=== PATIENT | female | born 1955 | race Caucasian/White ===

== ENCOUNTER 2016-06-06 05:41 | Inpatient (IN) | payer OTHER ==
[~2016-06-06] VITALS: Ht 167.6 cm; Wt 87.6 kg
--- NOTE | ~2016-06-06 | CON ---
[facility] AGE[facility] 60 Y [address] ROOM: [place] [address] LOCATION: [facility] ADMIT DATE: 06/06/2016 Consultation DISCHARGE DATE: FAMILY PHYSICIAN: PHYSICIAN, UNKNOWN ATTENDING PHYSICIAN: JOSELINE MOSELEY DATE OF CONSULTATION: 06/06/2016 REFERRING: Hospitalist Service. REASON FOR REFERRAL: Respiratory failure. HISTORY OF PRESENT ILLNESS: The patient is a 60-year-old woman who comes in apparently with an overdose Of multiple substances. Initially, presented to [facility]. Subsequently, transferred here. Intubated for airway protection and hypercapnic respiratory failure acute. PAST MEDICAL HISTORY: Unobtainable. Please refer to the admission history and physical exam. FAMILY HISTORY: Unobtainable. SOCIAL HISTORY: Unobtainable. REVIEW OF SYSTEMS: Unobtainable. PHYSICAL EXAMINATION: GENERAL: Elderly woman. No acute distress. ENT: Endotracheal tube in place. NECK: Normal. CHEST: Mildly hyperinflated. Diminished breath sounds in the left, few rhonchi. HEART: Regular. ABDOMEN: Nontender. EXTREMITIES: No clubbing or edema. ASSESSMENT: Hypercapnic respiratory failure from drug overdose. [facility] AGE: 60 Y [address] ROOM: [place] [address] LOCATION: [facility] ADMIT DATE: 06/06/2016 Consultation DISCHARGE DATE: FAMILY PHYSICIAN: PHYSICIAN, UNKNOWN ATTENDING PHYSICIAN: JOSELINE MOSELEY PLAN: Maintain mechanical ventilation until she wakes up and has cleared her substances. MD RANDAL FRENCH/olinda /[id number] d: 06/06/16900 t: 06/09/16 1455, CONSULTATION REPORT
--- NOTE | ~2016-06-06 | HP ---
PATIENT'S NAME: VARSHA GALLEGOS [facility] AGE: 60 Y [address] ROOM: [address] [address] LOCATION: [facility] ADMIT DATE: 06/06/2016 History & Physical DISCHARGE DATE: FAMILY PHYSICIAN: PHYSICIAN, UNKNOWN ATTENDING PHYSICIAN: JOSELINE MOSELEY DATE OF SERVICE: CHIEF COMPLAINT: Acute hypoxic and hypercapnic respiratory failure. HISTORY OF PRESENT ILLNESS: This is a 60-year-old female with a history of COPD, possible obstructive sleep apnea, and obesity hypoventilation syndrome without a natural diagnosis for it as far as I can check, she is also an active smoker, presents from [facility] after presenting there with altered mental status and was found to have hypoxic and hypercapnic respiratory failure. Per the patient's daughter who is a nurse, the story is that the patient was in her normal state of mind last night where she was watching TV and kind of fell asleep on the couch and was found to be unarousable later in the morning and was subsequently brought to the emergency room. The patient of note has a chronic back pain problems and she is on multiple narcotics as well as neuropathic pain medications. Of note, the patient and the daughter tells me that she had just filled her Lyrica prescription bottle, but this bottle was found empty. Denies any reports of intentional overuse, but it is very likely that the patient might have taken excess Lyrica and this culminated the patient's respiratory failure on top of her known COPD and probable obstructive sleep apnea. Subsequently, the patient was noted to have a pH of 2.0 and significant CO2 retaining and was intubated for respiratory failure and transferred to [facility]. During my evaluation here, the patient was intubated and sedated, resting comfortably, with vital signs stable. PAST MEDICAL HISTORY: Hypertension, coronary artery disease, chronic back pain, COPD, and tobacco dependence. SOCIAL HISTORY: The patient lives at home with her ex-. Smokes about two packs a day. No use of alcohol or drugs reported per family. FAMILY HISTORY: The patient has a history of coronary artery disease and hypertension in the family. REVIEW OF SYSTEMS: PATIENT'S NAME: VARSHA GALLEGOS [facility] AGE: 60 Y [address] ROOM: [facility] [place], [place] [address] LOCATION: [facility] ADMIT DATE: 06/06/2016 History & Physical DISCHARGE DATE: FAMILY PHYSICIAN: PHYSICIAN, UNKNOWN ATTENDING PHYSICIAN: JOSELINE MOSELEY Because of the patient's mental status from sedation and intubation, this was unable to be obtained. PHYSICAL EXAMINATION: VITAL SIGNS: Blood pressure 140/74, pulse 89, respiratory rate 12, saturating 96% on the vent. GENERAL: The patient is intubated and sedated. HEENT: Dry mucous membranes with conjunctival pallor noted. HEART: S1, S2. Regular rate and rhythm. LUNGS: Diminished breath sounds diffusely with no wheezing or crackles noted. ABDOMEN: Soft, nontender, nondistended with positive bowel sounds. EXTREMITIES: Without edema. No joint redness or swelling. No muscle pain noted on upper and lower extremities, in the area that can be examined. SKIN: Without rashes or lesions. NEURO: Grossly nonfocal. LABORATORY DATA: Laboratory drawn from [facility], creatinine 1.8 and that is what the patient's baseline is, CPK of over 4000. ASSESSMENT AND PLAN: 1. Acute hypoxic and hypercapnic respiratory failure. This is likely caused by a combination of factors including taking excess sedating pain medications combining with the patient's probably undiagnosed obstructive sleep apnea and obesity hypoventilation syndrome as well. The patient also is a heavy smoker and has history of chronic obstructive pulmonary disease. The patient is currently intubated and sedated and continue mechanical ventilation support and the tunneller is primarily managing ventilation support. Community-acquired pneumonia. The patient is spiking low-grade and chest x-ray showing possible left basilar consolidation. We will treat with renally adjusted Levaquin and monitor clinically. 2. Acute kidney injury, creatinine 1.8. This should be related to volume depletion and/or due to rhabdomyolysis. The patient's CPK is over 4000. We will continue with aggressive IV fluid resuscitation and continue to monitor I's and O's and urine output. 3. Rhabdomyolysis. We will continue treatment with aggressive IV fluid resuscitation and trend CPK levels. 4. Chronic obstructive pulmonary disease. Management of acute respiratory failure as above. 5. Morbid obesity. The patient needs workup for obstructive sleep apnea. 6. Deep venous thrombosis prophylaxis. We will use subcu heparin. 7. Chronic pain issues stemming from chronic low back pain. The patient would need readjustment of her pain regimen, so that what happened today with over use of her pain medications, that did not happen again. PATIENT'S NAME: VARSHA GALLEGOS [facility] AGE: 60 Y [address] ROOM: [place] [address] LOCATION: [facility] ADMIT DATE: 06/06/2016 History & Physical DISCHARGE DATE: FAMILY PHYSICIAN: PHYSICIAN, UNKNOWN ATTENDING PHYSICIAN: JOSELINE MOSELEY MD JOSE VALDOVINOS/olinda /[id number] D: [id number] T: [id number] HISTORY & PHYSICAL
--- NOTE | ~2016-06-06 | DS ---
PATIENT'S NAME: VARSHA GALLEGOS [facility] AGE: 60 Y [address] ROOM: [id number] [place], [place] [address] LOCATION: [facility] ADMIT DATE: 06/06/2016 Discharge Summary DISCHARGE DATE: 06/15/2016 FAMILY PHYSICIAN: Rigo Méndez PA-C ATTENDING PHYSICIAN: Simone Hartley PRINCIPAL DIAGNOSES: 1. Acute on chronic hypoxic and hypercapnic respiratory failure, requiring intubation. 2. Unintentional drug overdose. 3. Acute kidney injury. 4. Chronic back pain. 5. Morbid obesity. HOSPITAL COURSE: This is a 60-year-old female with morbid obesity and high risk for obstructive sleep apnea, but without sleep study done for evaluation; chronic low back pain, on multiple pain medications with sedating potential. She presented to the emergency room with respiratory failure, altered mental status, and was subsequently intubated for acute hypoxic and hypercapnic respiratory failure. The patient was also noted to have an infiltrate on her chest x-ray and was treated for pneumonia as well. The patient's respiratory status continued to improve after her mechanical ventilation support and her ICU stay and she was eventually able to get extubated successfully. Shortly after extubation, managing the patient's pain had been a challenge during hospitalization due to finding a balance between sedation and respiratory suppression and pain control. The patient was started on [employer] for pain control once her mental status was adequate for that and that seemed to control pain better. She had a consultation for Ortho and Dr. Tavares from Ortho saw her and had an MRI of her entire back done, which showed significant chronic changes mostly explained by degenerative joint disease in the back with some moderate spinal stenosis. The patient was given back injection while in the hospital, which seemed to significantly improve pain management. The patient from that sense is to follow up with Dr. Tavares upon discharge in 2 weeks' time for further evaluation. At this point, the patient has actually done very well, pain is very well controlled, and is only requiring minimal IV pain medications. I have changed her IV pain medication to an oral form and the hope is that she will be able to tolerate minimal amounts of pain medication going forward so that complications from oversedation, which led to her current presentation, does not occur. The patient was also evaluated by Psych Service during her hospitalization and it was determined that the patient monitored closely while at home while she gets her medications, and her daughter, who is a nurse, decided to have the patient stay with her and she will manage her medications and give her as needed. The patient is also high risk for obstructive sleep apnea and she would need an outpatient study as soon as possible and this has been discussed with the patient and the PATIENT'S NAME: VARSHA GALLEGOS [facility] AGE: 60 Y [address] ROOM: [place] [address] LOCATION: [facility] ADMIT DATE: 06/06/2016 Discharge Summary DISCHARGE DATE: 06/15/2016 FAMILY PHYSICIAN: Rigo Méndez PA-C ATTENDING PHYSICIAN: Simone Hartley patient's daughter extensively and will arrange for that as soon as possible upon discharge. The rest of her discharge summary for the remainder of her hospital stay is to be addended to this dictation by the discharging physician. MD JOSE VALDOVINOS/modl /[id number] d: 06/15/161999 t: 06/30/16928, DISCHARGE SUMMARY
--- NOTE | ~2016-06-06 | PUL ---
PATIENT'S NAME: VARSHA GALLEGOS [facility] AGE: 60 Y [address] ROOM: [place] [address] LOCATION: [facility] ADMIT DATE: 06/06/2016 Pulmonary DISCHARGE DATE: 06/15/2016 FAMILY PHYSICIAN: Rigo Méndez PA-C ATTENDING PHYSICIAN: Simone Hartley NAME OF PROCEDURE: Overnight Pulse Oximetry DATE OF PROCEDURE: June 14 to June 15, 2016 REASON FOR EXAM: Nocturnal hypoxemia RESULTS: The test was performed on room air. The recording time was 6 hours, 21 minutes, and 52 seconds, with a total valid sampling time of 5 hours, 39 minutes, and 24 seconds. The highest pulse was 101, lowest pulse was 60, with a mean pulse of 70. The highest SpO2 was 100%, lowest SpO2 was 81%, with a mean SpO2 of 89.6%. The patient spent 1 hour, 51 minutes, and 16 seconds with SpO2 less than 89%, representing 32.8% of the total sleep time. The desaturation event index was significantly elevated 16.6. PHYSICIAN INTERPRETATION: The patient has significant nocturnal hypoxia and would qualify for supplemental oxygen as per Medicare criteria. However, because of the severity of her nocturnal hypoxia with an elevated desaturation event index a sleep study is recommended at this time. MD MARIANELA GAINES/deisy /[id number] dtt: 06/17/16 1401 , BRITTON LEY dtd: 06/17/16 1145
--- NOTE | ~2016-06-06 | CON ---
PATIENT'S NAME: VARSHA GALLEGOS [facility] AGE: 60 Y [address] ROOM: [address] [place], [place] [address] LOCATION: [facility] ADMIT DATE: 06/06/2016 Consultation DISCHARGE DATE: FAMILY PHYSICIAN: TRISHA QUINTERO PA-C ATTENDING PHYSICIAN: JOSELINE MOSELEY REASON FOR CONSULTATION: Overdose on multiple medications. HISTORY OF PRESENT ILLNESS: Ms. Solorzano is a 60-year-old female, who was initially brought into the hospital on 06/06/2016. She reportedly had taken excess amounts of Lyrica, which she takes for her back pain. She was said to be unarousable and a bottle of Lyrica was said to be empty. She initially had been to the [facility] and was transferred from there. Reports available. She also must have taken some hydrocodone, Flexeril, Ativan, Ultram, ibuprofen, and aspirin. She also has been using marijuana on a daily basis. As of today, she feels that she was trying to get help for her back pain, but nobody was helping her. In view of her extreme back pain, she decided to take some extra pills, which led her to passing out. She no way describes this as a suicide attempt. She denies any thoughts of suicide. She intends to now stay with her daughter, who also is an RN, so that she can get help. She does not want to come to inpatient psychiatric unit. I believe the staff also have talked to the daughter, who feels the patient might be safe to be discharged. She says her outpatient MD gave lots of medications, which she was taking them. Major stressor again has been the pain, which has been disabling her. Denies any psychotic symptoms. Denies any yeison. PREVIOUS PSYCHIATRIC HISTORY: Denies any previous suicidal attempts. She has to take [place]'s wort in the outpatient clinic, which is an [id number] medicine for depression. MEDICAL HISTORY: Hypertension, chronic back pain, and neuropathy. SUBSTANCE USE HISTORY: She smokes marijuana. She has also been to [facility] in the past. She said she has been using pain medications for the last 15 years. I believe she has been dependent on pain medications. SOCIAL HISTORY: She lives with her in [place], [place]. She thinks that she could probably live with her daughter now, who is an RN. She thinks that the daughter will manage her medications. MENTAL STATUS EXAMINATION: PATIENT'S NAME: VARSHA GALLEGOS [facility] AGE: 60 Y [address] ROOM: [id number] [place], [place] [address] LOCATION: [facility] ADMIT DATE: 06/06/2016 Consultation DISCHARGE DATE: FAMILY PHYSICIAN: TRISHA QUINTERO PA-C ATTENDING PHYSICIAN: JOSELINE MOSELEY This is a 60-year-old female, who is awake and alert. She was cooperative. She was not displaying any psychotic symptoms. She also displaying fair eye contact. She denies any thoughts of suicide. She is minimizing her overdose attempt. She believes that this was not a suicide attempt. Does not seem to show any overt psychotic symptoms at this time. Cognition appears to be grossly intact. She is not confused. Insight and judgment are limited. DIAGNOSES: Opioid use disorder, moderate; cannabis use disorder, [id number]; chronic back pain; hypertension; recent excessive ingestion of Lyrica and other medications resulting in acute respiratory failure. PLAN: We will initiate Cymbalta 20 mg per day. It appears that the patient is much more cognitive clear and she is willing to contract for safety. She has been hospitalized for the last 6 days and appears to have resolved the crisis. She is no longer complaining of excessive back pain. I have informed the staff that we need to inform the family that they should be dispensing her medications and she is in no way allowed to have her medication administered by herself from now on. Safety plan was reviewed. I have also informed the staff to have the family call me if they have any questions. For now, the patient will be allowed to be discharged back to home. She does not need an inpatient psychiatric unit, however, the family has significant concerns be open to having her admitted. Please give me a call if you have any questions. MD LIZ LAUREN/olinda /[id number] d: 06/13/162015 t: 06/17/16 2133, CONSULTATION REPORT
--- NOTE | ~2016-06-06 | CON ---
PATIENT'S NAME: VARSHA GALLEGOS [facility] AGE: 60 Y [address] ROOM: [address] [address] LOCATION: [facility] ADMIT DATE: 06/06/2016 Consultation DISCHARGE DATE: FAMILY PHYSICIAN: TRISHA QUINTERO PA-C ATTENDING PHYSICIAN: JOSELINE MOSELEY DATE OF CONSULTATION: 06/09/2016 TIME: 9 p.m. Additional consultations through June 11, 2016. HISTORY OF PRESENT ILLNESS: Ms. Gallegos is a 60-year-old right-handed white female. Ms Gallegos was admitted to the [facility] on June 06, 2016, in respiratory failure, in a coma secondary to drug overdose, some combination of morphine, hydrocodone, Lyrica, Flexeril, Ativan, Ultram, ibuprofen, and aspirin. Also was using marijuana on a regular basis. Denies other illicit drugs. Now off the ventilator. 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 Pain is increased over the years as well as increasing radiating pain down both legs into the right shoulder. She has opted for medical management. Even with maximum doses of medication, the back pain wakes her constantly at night and limits her to almost no activity. She smokes 2 packs a day for years. She has an inversion table, which has been helpful, not doing any other exercise program. In the past, she has done physical therapy at [facility]. She has also had chiropractic treatments with Dr. Farrar in [place]. No real relief. Pain prevents her from sweeping, walking, driving, vacuuming, cleaning, and working in general. She would like to be able to play with her grandchildren. Her works, and there is no financial need for her to work, but she would like to be more comfortable. MEDICATIONS: As above plus: 1. Norvasc. 2. Metoprolol. 3. Cardura. 4. Lasix. ALLERGIES: NO ALLERGIES TO MEDICATIONS KNOWN. PAST MEDICAL HISTORY: Remarkable for; chronic back pain; chronic neck pain; neuropathic arm and leg PATIENT'S NAME: VARSHA GALLEGOS [facility] AGE: 60 Y [address] ROOM: [id number] [place], [place] [address] LOCATION: [facility] ADMIT DATE: 06/06/2016 Consultation DISCHARGE DATE: FAMILY PHYSICIAN: TRISHA QUINTERO PA-C ATTENDING PHYSICIAN: JOSELINE MOSELEY pain, most likely, some degree of dystrophy with pain out of proportion to what would be expected; arthritis of the knees, requiring a left total knee replacement and considering a right total knee replacement in the future; heart trouble; hypertension; feelings of depression; stomach ulcers; does not take any anticoagulants; she has smoked 2 packs per day for years; drinks coffee, occasional alcohol, use of marijuana on a regular basis. REVIEW OF SYSTEMS: As above. There is no known cancer or infection. No infections after her total knee replacement or problems with wound healing. FAMILY MEDICAL HISTORY: Remarkable for congestive heart failure, coronary artery disease, chronic obstructive pulmonary disease, low back degeneration and pain. PERSONAL SOCIAL HISTORY: . Lives with her . She had been to this for 15 years. She has grand children and would be happy if she could do some activities with her grandchildren. PHYSICAL EXAMINATION: GENERAL: A white female, appears older than her stated age, 5 feet 6 inches tall, weighs 190 pounds. When she stands, she is out of balance with her occiput forward to her pelvis. She walks with a flexed posture of her hips and knees. Unable to do a tandem gait. NECK: Decreased extension. LOW BACK: Generally tender at the lumbosacral junction. In the frontal plane, minimal scoliosis and not out of balance. Mild flexion contractures of both hips. Hips otherwise move without pain. Right knee incision is well healed. There is full extension, flexion to 105 degrees. Left knee full extension. Normal valgus alignment. No crepitus. No effusion. Flexes to 120 degrees and stable. HEART: Pulse rate is regular. LUNGS: Able to take in a deep breath. ABDOMEN: Obese and pendulous. No masses, nontender. 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 Intrinsics 3/5 bilaterally. Wrist extensors 5/5 bilaterally. Biceps 5/5 bilaterally. Triceps 5/5 bilaterally. Iliopsoas 3/5 bilaterally. Quadriceps 4+/5 bilaterally. Anterior tibs 5/5 bilaterally. Gastrocs 5/5 bilaterally. Extensor hallucis longus 3-/5 bilaterally. Posterior tibs 4-/5 bilaterally. Sensation: Hyperpathic sensation in a stocking distribution of both lower extremities. Otherwise, sensation is intact. RECTAL: Deferred. VASCULAR: Distal pulses present. No pedal edema. Some chronic skin changes in the lower extremities. PATIENT'S NAME: VARSHA GALLEGOS [facility] AGE: 60 Y [address] ROOM: [place] [address] LOCATION: [facility] ADMIT DATE: 06/06/2016 Consultation DISCHARGE DATE: FAMILY PHYSICIAN: TRISHA QUINTERO PA-C ATTENDING PHYSICIAN: JOSELINE MOSELEY IMAGING DATA: Full length standing x-rays balance, scoliosis, being a degenerative type scoliosis concave to the right at the lumbosacral junction and compensatory above in the sagittal plane on flat back, out of balance with the C7 breanna line, approximately 100 mm anterior to the mid sacrum. I was unable to do flexion-extension views of the neck or the back at this time. Partially probably related to radiologic technique. MRI of the cervical spine, multilevel degeneration with moderate stenosis at cervical 6-7, cervical 5-6, and cervical 4-5, and mild at cervical 3-4. Lordosis is present. MRI of the thoracic spine, mild degenerative changes. No stenosis. No fractures. MRI of the lumbar spine, severe degenerative changes of lumbar 4-5 and lumbar L5-S1. Djwj-jc-ggezzoty changes at 3-4. There are bilateral lysis of lumbar 5 with grade 2 listhesis of lumbar 5 on the sacrum. Foraminal stenosis on the right at lumbar 4-5 is severe. No acute fractures. No evidence of any diskitis or epidural abscess. X-ray of the pelvis, no hip fracture. No significant degeneration of the hip. Mild degenerative changes of the SI joints. ASSESSMENT AND PLAN: Chronic pain syndrome increasing over the last decade. The patient is totally disabled at a relatively young age and without significant other medical disorders. Certainly, almost fatal overdose of narcotic medications. At this time, we prefer to try to control her pain with reconditioning and possible reconstructive surgery and minimal pain medications. With the moderate stenosis of the cervical spine at multiple levels, this should be addressed before the lumbar spine. 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 We would recommend good flexion-extension views, followed by most likely laminoplasty. Once the cervical spine is protected, would benefit from a reconstructive surgery of the low back. This would include multilevel fusion, decompression, and correction of the kyphotic deformity. She understands this would never make her pain free, but an optimal situation would offer a 50% chance of 50% improvement. She also understands, we would never consider any surgery or offer her any surgery if she is not able to stop smoking. She understands if she continues smoking, she is guaranteed of poor result from surgical intervention. At this time, we will do a lumbar epidural steroid injection. We will start her on a low-dose of maintenance methadone for pain control only. We will have Physiatry evaluate her to begin an exercise program to try to recondition. We will place her in a soft cervical PATIENT'S NAME: VARSHA GALLEGOS [facility] AGE: 60 Y [address] ROOM: [place] [address] LOCATION: [facility] ADMIT DATE: 06/06/2016 Consultation DISCHARGE DATE: FAMILY PHYSICIAN: TRISHA QUINTERO PA-C ATTENDING PHYSICIAN: JOSELINE MOSELEY collar to help protect her neck. We Will place her in a soft lumbosacral orthosis to hopefully aid her immobilization. Risks, benefits, and alternatives were all discussed in detail with the patient and the family. All questions answered.. JUDY BRICE MD DPM/jorgel /[id number] d: 06/11/162249 t: 06/13/16 1010, CONSULTATION REPORT
--- NOTE | ~2016-06-06 | OR ---
PATIENT'S NAME: VARSHA GALLEGOS [facility] AGE: 60 Y [address] 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 PROCEDURE: Lumbar epidural steroid injection via caudal approach. ANESTHESIA: Local. INDICATIONS: Ms. Gallegos has been increasingly disabled over the last 10 years with back and leg pain greater than neck and arm pain. At this time, an epidural injection was indicated to try to allow some degree of reconditioning prior to surgical intervention. The risks, benefits, and alternatives have been discussed. She also understands the importance of smoking cessation. DESCRIPTION OF PROCEDURE: At the bedside, Ms. Gallegos was positioned prone. Back was prepared with iodine painting. Sterile field set up with drapes. 2 mL of 1% lidocaine infused about the sacral hiatus. 22-gauge spinal needle was advanced through the sacral hiatus into the epidural space. Aspiration was attempted. No return of blood. No cerebrospinal fluid. At this point, 6 mg of Celestone combined with 9 mL of 0.25% preservative-free Marcaine for epidural use were slowly infused. Procedure was done without complication. Band-Aid placed over the puncture site. MD MAYNOR STRANGEM/modl /[id number] d: 06/11/162203 t: 06/13/16 1013, OPERATIVE SUMMARY
--- NOTE | ~2016-06-06 | CON ---
PATIENT'S NAME: VARSHA GALLEGOS [facility] AGE: 61 Y [address] ROOM: [place] [address] LOCATION: ADMIT DATE: 06/06/2016 Consultation DISCHARGE DATE: 06/15/2016 FAMILY PHYSICIAN: ATTENDING PHYSICIAN: DATE OF CONSULTATION: 06/13/2016 ADDENDUM: Date of examination and date seen is 06/13/2016. MD LIZ LAUREN/modvlad /[id number] d: 11/01/162232 t: 11/07/16 0804, CONSULTATION REPORT
--- NOTE | ~2016-06-06 | DS ---
PATIENT'S NAME: JEANINE GALLEGOS [facility] AGE: 60 Y [address] ROOM: [id number] [place], [place] [address] LOCATION: [facility] ADMIT DATE: 06/06/2016 Discharge Summary DISCHARGE DATE: 06/15/2016 FAMILY PHYSICIAN: Rigo Méndez PA-C ATTENDING PHYSICIAN: Simone Hartley ADDENDUM: Dr. Vasquez has already dictated a preliminary discharge summary and this is the addendum. BRIEF HISTORY: Ms. Jeanine Gallegos is a 60-year-old female who was admitted due to acute hypercapnic hypoxic respiratory failure thought to be related to excess narcotics. Psychiatrist who evaluated her could not elicit any suicidality. At this time, she also denies suicidality. She reports that she has been taking sosw-uqj-ejynkfg Ariel's Wort t.i.d. prior to admission. She was started on Cymbalta on 06/13/2016, but it was stopped on the because of potential interactions with Ultram and we are attempting to control her pain without narcotics. Dr. Tavares of Orthopedics had recommended p.r.n. methadone. I have severely cautioned the daughter about this and given the 10 mg tablets and recommended a 10 mg dose only twice daily if needed for severe pain. The patient is in no acute distress this morning, she is talkative, and appears somewhat nervous. PHYSICAL EXAMINATION: LUNGS: Slight bibasilar crackles worse on the right with no significant wheezing. HEART: Rate is regular. ABDOMEN: Soft with normal bowel sounds. EXTREMITIES: She does have 2+ pitting edema. INSTRUCTIONS AT DISCHARGE: Include cardiac diet, low carb, low-fat, walk as tolerated. I have recommended she walk 15 minutes in the morning and 15 minutes in the evening. Follow up is with Dr. Silvio Tavares on 07/23/2016 at 2 p.m. She will see Margot Barakat, Nurse Practitioner, who is close to where her daughter lives and the patient will be staying with her daughter indefinitely. She says she can see her on Wednesday. We will try to schedule an appointment for the . I have also recommended she see Dr. Lima for COPD, confirm her diagnosis, and optimize treatment within a month, and then Psychiatry follow up as soon as possible regarding the depression and optimizing medical treatment. Due to medication interaction, she cannot be on a [place]'s Wort; however, this was advised against. I have given her daughter information about drug interaction. MEDICATIONS AT THE TIME OF DISCHARGE: 1. Amlodipine 10 mg p.o. daily. PATIENT'S NAME: JEANINE GALLEGOS [facility] AGE: 60 Y [address] ROOM: [address] [place] [id number] LOCATION: [facility] ADMIT DATE: 06/06/2016 Discharge Summary DISCHARGE DATE: 06/15/2016 FAMILY PHYSICIAN: Rigo Méndez PA-C ATTENDING PHYSICIAN: Simone Hartley 2. Aspirin 325 mg p.o. daily with food. 3. Lisinopril 5 mg p.o. daily for hypertension. 4. Methadone 10 mg one p.o. b.i.d. p.r.n. severe pain. 5. She has been advised to stop other narcotics. 6. Metoprolol 50 p.o. b.i.d. 7. NicoDerm patch 14 mg daily for 7 days then reduce to 7 mg daily. 8. Protonix 40 mg p.o. daily for 30 days for indigestion. 9. Lyrica 75 mg p.o. in the morning and 150 at h.s. 10. Tylenol p.r.n. 11. She is to stop ibuprofen and Cardura. 12. Cyclobenzaprine the dose has been decreased to 5 mg p.o. p.r.n. muscle spasm every 8 hours. 13. She is to stop Benadryl. 14. Tramadol 50 mg q.6 h. p.r.n. pain. 15. Lasix 20 mg p.o. every morning for her lower extremity edema. 16. Ogen 0.625 mg p.o. daily. 17. Provera 2.5 mg p.o. daily. 18. Multivitamins and Relacore p.o. daily. 19. K-Dur 20 mEq p.o. daily. 20. Albuterol MDI 1-2 puff q.4 h. p.r.n. wheeze. 21. Spiriva 1 cap inhaled daily. CONDITION AT DISCHARGE: Good. Time spent is greater than 45 minutes. PAULO RESENDEZ MD LM/olinda /[id number] d: 06/16/16 0351 t: 06/22/16 1204, DISCHARGE SUMMARY
[2016-06-06] MEDS ORDERED: NORVASC10 MG PO (09:59)
[2016-06-06] MEDS ORDERED: LASIX20 MG PO (09:59)
[2016-06-06] MEDS ORDERED: FLEXERIL10 MG PO (10:00)
[2016-06-06] MEDS ORDERED: CARDURA8 MG PO (10:01)
[2016-06-06] MEDS ORDERED: LOPRESSOR50 MG PO (10:01)
[2016-06-06] MEDS ORDERED: LYRICA 75MG CAP75 MG PO (10:01)
[2016-06-06] MEDS ORDERED: OGEN0.625 MG PO (10:02)
[2016-06-06] MEDS ORDERED: PROVERA2.5 MG PO (10:02)
[2016-06-06] MEDS ORDERED: ECOTRIN325 MG PO (10:03)
[2016-06-06] MEDS ORDERED: ADVIL200 MG PO (10:03)
[2016-06-06] MEDS ORDERED: THERAGRAN-M1 TAB PO (10:03)
[2016-06-06] MEDS ORDERED: RELACORE PO (10:04)
[2016-06-06 13:43] LABS: BASOPHIL % 0.2 %; EOSINOPHIL % 0.1 %; HEMATOCRIT 36.8 % (33.0-46.0); HEMOGLOBIN 11.8 g/dL (10.0-15.0); IMMATURE GRANULOCYTE # 0.1 K/uL (0.0-0.3); IMMATURE GRANULOCYTE % 0.6 %; LYMPHOCYTE # 2.3 K/uL (0.8-4.0); LYMPHOCYTE % 16.9 %; MCH 32.9 pg (27.0-34.0); MCHC 32.1 gm/dL (32.0-36.5); MCV 102.5 fl (83.0-98.0); MONOCYTE % 7.4 %; MPV 9.8 fl (9.4-12.4); NEUTROPHIL # (ANC) 10.4 K/uL (1.8-7.8); NEUTROPHIL % 74.8 %; NRBC % 0 /100WBC (0-0.00); PLATELET COUNT 205 K/uL (150-450); RBC 3.59 M/uL (3.50-5.50); RDW-CV 13.6 % (11.9-14.6); WBC 13.9 K/uL (4.0-11.0)
[2016-06-06 14:03] LABS: ALK PHOS 54 IU/L (33-138); ALT 62 IU/L (12-78); AST 97 IU/L (10-40); BLOOD UREA NITROGEN 16 mg/dL (6-24); CALCIUM 7.9 mg/dL (8.5-10.5); CO2 25 mMol/L (22-32); CREATININE 0.6 mg/dL (0.5-1.1); ESTIMATED GFR (MDRD EQUATION) > 60; POTASSIUM 3.6 mMol/L (3.7-5.1); TOTAL BILIRUBIN 0.4 mg/dL (0.0-1.5); TOTAL PROTEIN 6.1 g/dL (6.0-8.4)
[2016-06-06 14:04] LABS: ANION GAP 11.6 (10.0-19.0); CHLORIDE 118 mMol/L (96-110); SODIUM 151 mMol/L (135-145)
[2016-06-06 14:13] LABS: CPK 2220 IU/L (21-215)
[2016-06-06 14:31] LABS: BILIRUBIN URINE NEGATIVE (NEGATIVE); BLOOD URINE 10 /UL (NEGATIVE); COLOR URINE YELLOW (YELLOW); GLUCOSE URINE NEGATIVE (NEGATIVE); KETONE URINE 5 mg/dL (NEGATIVE); LEUKOCYTES URINE 25 /UL (NEGATIVE); NITRITE URINE NEGATIVE (NEGATIVE); PROTEIN URINE 30 mg/dL (NEGATIVE); SPEC GRAVITY URINE 1.015 (1.003-1.035); TURBIDITY URINE CLEAR (CLEAR); UROBILINOGEN URINE NORMAL (NORMAL)
[2016-06-06 14:44] LABS: AMORPHOUS URINE 1+ (NEGATIVE); BACTERIA URINE FEW (NEGATIVE); EPITHELIAL URINE 0-2 #/HPF (NEGATIVE); MUCUS URINE 1+ (NEGATIVE)
--- NOTE | 2016-06-06 19:50 | NUR ---
Significant Event: Patient is sedated on Propofol. Patient does not follow commands, at times will withdraw in upper extremities, pupils are equal and reactive. SBP Have been 120's-150's, MAP's 80's-low 100's, HR 80's-90's. Patient is in AC rate of 12, TV of 500, PEEP of 5, Fio2 of 40%, EtCo2 have been 40's, RR have been teens. Lung sounds are slightly coarse in the Left upper lobe and clear and diminished in left lower lobe and right side. Gregory had 555ml out. Patient has a an OG to LIS. Follow up:
[2016-06-07 04:34] LABS: BICARBONATE 27.9 mmol/L (18.0-23.0); PCO2 43 mmHg (35-45); PO2 87 mmHg (80-90)
--- NOTE | 2016-06-07 04:40 | NUR ---
Significant Event: Patient remains on ventilator with sedation. Versed pushes given prn. Patient gets restless and agitated and thrashes in the bed at times. VSS. OG to LIS. Fan on and tylenol given for temps. Gregory with good UOP. Does not follow any commands. Patient's family at bedside all night. Spoke with them about letting her rest and not stimulating her while in the room. Follow up: Continue to monitor. Wean sedation and ventilator as patient tolerates.
--- NOTE | 2016-06-07 05:14 | NUR ---
No changes made to vent settings this shift. FiO2 currently at 40% for O2 sats of 96-100%. ETCO2 was 40-43 throughout the shift. Breathsounds slightly coarse throughout bilaterally, suctioning moderate amounts of thick creamy secretions. Will continue to monitor patient.
[2016-06-07 05:44] LABS: BASOPHIL # 0.1 K/uL (0.0-0.2); BASOPHIL % 0.5 %; EOSINOPHIL # 0.1 K/uL (0.0-0.5); EOSINOPHIL % 0.9 %; HEMATOCRIT 35.9 % (33.0-46.0); HEMOGLOBIN 11.6 g/dL (10.0-15.0); IMMATURE GRANULOCYTE # 0.1 K/uL (0.0-0.3); IMMATURE GRANULOCYTE % 0.5 %; LYMPHOCYTE # 2.5 K/uL (0.8-4.0); LYMPHOCYTE % 21.2 %; MCH 32.8 pg (27.0-34.0); MCHC 32.3 gm/dL (32.0-36.5); MCV 101.4 fl (83.0-98.0); MONOCYTE % 8.6 %; MPV 9.9 fl (9.4-12.4); NEUTROPHIL # (ANC) 8.1 K/uL (1.8-7.8); NEUTROPHIL % 68.3 %; NRBC % 0 /100WBC (0-0.00); PLATELET COUNT 206 K/uL (150-450); RBC 3.54 M/uL (3.50-5.50); RDW-CV 13.2 % (11.9-14.6); WBC 11.8 K/uL (4.0-11.0)
[2016-06-07 06:02] LABS: ALBUMIN 2.9 gm/dL (3.5-5.0); ALK PHOS 57 IU/L (33-138); ALT 66 IU/L (12-78); AST 86 IU/L (10-40); BLOOD UREA NITROGEN 10 mg/dL (6-24); CALCIUM 7.8 mg/dL (8.5-10.5); CHLORIDE 113 mMol/L (96-110); CO2 28 mMol/L (22-32); CREATININE 0.6 mg/dL (0.5-1.1); ESTIMATED GFR (MDRD EQUATION) > 60; MAGNESIUM 1.9 mg/dL (1.3-2.6); POTASSIUM 3.2 mMol/L (3.7-5.1); TOTAL PROTEIN 6.2 g/dL (6.0-8.4)
[2016-06-07 06:04] LABS: ANION GAP 10.2 (10.0-19.0); SODIUM 148 mMol/L (135-145); TOTAL BILIRUBIN 0.6 mg/dL (0.0-1.5)
[2016-06-07 06:49] LABS: CPK 1458 IU/L (21-215)
--- NOTE | 2016-06-07 11:16 | NUR ---
REC OSMOLITE 1.5 @ 55 ML/HR TO MEET PT NEEDS.
[2016-06-07 17:02] LABS: BARBITURATE NEGATIVE (NEGATIVE); COCAINE NEGATIVE (NEGATIVE)
[2016-06-07 17:04] LABS: AMPHETAMINE NEGATIVE (NEGATIVE); OPIATES POSITIVE (NEGATIVE)
--- NOTE | 2016-06-07 17:14 | NUR ---
D: RESPIRATORY FAILURE I: V2OO, ALBUTEROL MDI R: BREATH SOUNDS COARSE TO SLIGHLTLY COARSE, DECREASED LOWER LOBE, SXN- LARGE THICK YELLOW/MCDONALD, ET TUBE SECURE, CUFF AT MINIMAL OCCLUSIVE PRESSURE, MINI BAL SENT TO LAB P: CONTINUE CURRENT THERAPY
--- NOTE | 2016-06-07 17:32 | NUR ---
Significant Event: Patient is sedated on 50mcg/kg/min of Propofol, 4mg/hr of Versed, and 100mcg/hr of Fentanyl. Patient gets very restless at times. Does not follow commands, witthdraws in upper extremities, opens eyes spontaneously, pupils are equal and reactive. SBP have been 120's-160's, MAP's 90's-100's, HR 70's-80's. Patient is in AC rate of 12, TV of 500, PEEP of 5 and Fio2 of 40%. RR 12-19, EtCo2 have ronal upper 30's-low 40's. Lung sounds are slightly coarse to coarse. Suctioning a lot of thick creamy secretions out of Et tube and oral suction. Gregory had 1335ml out. Patient got 40meq of KCL Follow up:
[2016-06-07 22:33] LABS: ANION GAP 12.8 (10.0-19.0); BLOOD UREA NITROGEN 6 mg/dL (6-24); CALCIUM 7.6 mg/dL (8.5-10.5); CHLORIDE 110 mMol/L (96-110); CO2 23 mMol/L (22-32); CREATININE 0.5 mg/dL (0.5-1.1); ESTIMATED GFR (MDRD EQUATION) > 60; SODIUM 142 mMol/L (135-145)
[2016-06-07 22:34] LABS: POTASSIUM 3.8 mMol/L (3.7-5.1)
--- NOTE | 2016-06-08 04:12 | NUR ---
Significant Event: Patient remains sedated on ventilator. Daughter at bedside. VSS. Titrating propofol and versed for SAS 3. Rested well, does not follow any commands. Grimaces with oral cares, spontaneous cough. Suctioning moderate amount of secretions from ET tube. Gregory with good UOP. OG tube to LIS. Follow up: Continue to monitor. Wean sedation and ventilator as patient tolerates. MRI today.
[2016-06-08 04:27] LABS: BICARBONATE 29.2 mmol/L (18.0-23.0); PCO2 41 mmHg (35-45); PO2 86 mmHg (80-90)
[2016-06-08 05:25] LABS: BASOPHIL % 0.1 %; HEMOGLOBIN 12.1 g/dL (10.0-15.0); IMMATURE GRANULOCYTE # 0.1 K/uL (0.0-0.3); IMMATURE GRANULOCYTE % 0.5 %; LYMPHOCYTE # 1.6 K/uL (0.8-4.0); LYMPHOCYTE % 17.4 %; MCHC 33.6 gm/dL (32.0-36.5); MCV 98.1 fl (83.0-98.0); MONOCYTE # 0.7 K/uL (0.0-1.0); MONOCYTE % 7.7 %; MPV 10.2 fl (9.4-12.4); NEUTROPHIL # (ANC) 6.8 K/uL (1.8-7.8); NEUTROPHIL % 74.3 %; NRBC % 0 /100WBC (0-0.00); PLATELET COUNT 216 K/uL (150-450); RBC 3.67 M/uL (3.50-5.50); RDW-CV 12.8 % (11.9-14.6); WBC 9.2 K/uL (4.0-11.0)
--- NOTE | 2016-06-08 05:28 | NUR ---
No changes were made to vent settings this. FiO2 currently at 40% for O2 sats of 95-97%. ETCO2 was 33-38 throughout the shift. Breathsounds slightly coarse throughout bilaterally, breathsounds clear and diminished at times also. Suctioning small to moderate amounts of thick cruz secretions. Will continue to monitor patient.
[2016-06-08 05:44] LABS: ALBUMIN 2.9 gm/dL (3.5-5.0); ALK PHOS 58 IU/L (33-138); ALT 64 IU/L (12-78); ANION GAP 11.3 (10.0-19.0); AST 52 IU/L (10-40); BLOOD UREA NITROGEN 5 mg/dL (6-24); CALCIUM 7.9 mg/dL (8.5-10.5); CHLORIDE 109 mMol/L (96-110); CO2 27 mMol/L (22-32); CREATININE 0.5 mg/dL (0.5-1.1); ESTIMATED GFR (MDRD EQUATION) > 60; POTASSIUM 3.3 mMol/L (3.7-5.1); SODIUM 144 mMol/L (135-145); TOTAL BILIRUBIN 0.5 mg/dL (0.0-1.5); TOTAL PROTEIN 6.5 g/dL (6.0-8.4)
[2016-06-08 05:51] LABS: MAGNESIUM 1.9 mg/dL (1.3-2.6)
[2016-06-08 05:52] LABS: PHOSPHORUS 1.6 mg/dL (2.5-4.9)
--- NOTE | 2016-06-08 10:43 | NUR ---
NUTRITION CONSULT RECEIVED FOR TF RECOMMENDATIONS. RECOMMEND OSMOLITE 1.5 AT A GOAL RATE OF 55 ML/HR.
--- NOTE | 2016-06-08 16:26 | NUR ---
Significant Event: Patient is on Propofol, Fentanyl, and Versed. Does not follow commands, pupils are equal and reactive. Opens eyes spontaneously but does not track. Will withdraw in uppers at times. SBP have been 120's-190's, MAP's 80's-low 100's, HR 40's-90's. Patient is in AC Rate of 12, TV 500, PEEP of 8, FiO2 of 40%, EtCo2 have been 30's, RR 14-22. Lung Sounds are slight coarse to coarse. Gregory had 1540ml out. Follow up:
[2016-06-09 04:16] LABS: ALBUMIN 2.9 gm/dL (3.5-5.0); ALK PHOS 52 IU/L (33-138); ALT 65 IU/L (12-78); CALCIUM 7.8 mg/dL (8.5-10.5); CHLORIDE 107 mMol/L (96-110); CO2 25 mMol/L (22-32); CREATININE 0.5 mg/dL (0.5-1.1); ESTIMATED GFR (MDRD EQUATION) > 60; SODIUM 142 mMol/L (135-145); TOTAL BILIRUBIN 0.5 mg/dL (0.0-1.5); TOTAL PROTEIN 6.5 g/dL (6.0-8.4)
[2016-06-09 04:20] LABS: ANION GAP 13.2 (10.0-19.0); AST 37 IU/L (10-40); BLOOD UREA NITROGEN 11 mg/dL (6-24); MAGNESIUM 1.8 mg/dL (1.3-2.6); POTASSIUM 3.2 mMol/L (3.7-5.1)
[2016-06-09 04:22] LABS: BICARBONATE 31.2 mmol/L (18.0-23.0); PCO2 41 mmHg (35-45)
[2016-06-09 04:27] LABS: PO2 62 mmHg (80-90)
[2016-06-09 04:31] LABS: BASOPHIL % 0.3 %; HEMATOCRIT 37.2 % (33.0-46.0); HEMOGLOBIN 12.6 g/dL (10.0-15.0); IMMATURE GRANULOCYTE # 0.1 K/uL (0.0-0.3); LYMPHOCYTE % 13.8 %; MCH 33.1 pg (27.0-34.0); MCHC 33.9 gm/dL (32.0-36.5); MCV 97.6 fl (83.0-98.0); MONOCYTE # 0.4 K/uL (0.0-1.0); MONOCYTE % 5.6 %; MPV 10.6 fl (9.4-12.4); NEUTROPHIL # (ANC) 5.8 K/uL (1.8-7.8); NEUTROPHIL % 79.3 %; NRBC % 0 /100WBC (0-0.00); PLATELET COUNT 227 K/uL (150-450); RBC 3.81 M/uL (3.50-5.50); RDW-CV 13.2 % (11.9-14.6); WBC 7.3 K/uL (4.0-11.0)
--- NOTE | 2016-06-09 05:13 | NUR ---
D: RESPIRATORY FAILURE I: VENT, MDI R: PT. ON PEEP OF 8 AND FIO2 OF 50%. ETCO2 32-36. BREATH SOUNDS ARE CLEAR AND DIMINISHED T/O. SUCTIONED A SMALL AMOUNT OF THICK CREAMY SECRETIONS. P: WILL CONTINUE TO MONITOR
--- NOTE | 2016-06-09 10:54 | NUR ---
A-NUTRITION F/U ON THE VENT; SEDATED W/PRECEDEX, PROPOFOL, AND FENTANYL. TOLERATED 15 MIN. OF CPAP TRIAL. HYPOACTIVE BS. (+)BM LABS: NA 142, K+ 3.2, GLU 216, BUN 11, BANK CONSULTANT 0.5, ALB 2.9 MEDS: PROTONIX, LEVAQUIN, SOLU-MEDROL, PRECEDEX DIET RX: NPO (DAY #3) EST NUTR NEEDS: [id number] KCALS AND 86-103 GM PROTEIN D-AT NUTRITION RISK W/DIFF. SWALLOWING R/T VENT SUPPORT AEB NPO STATUS. I-RECOMMEND OSMOLITE 1.5 AT A GOAL RATE OF 55 ML/HR; THIS WILL PROVIDE 1980 KCALS, 83 GM PROTEIN, AND 1006 ML FREE H20. M/E-GOAL: START APPROPRIATE DIET RX WITHIN 24-48 HRS. 1)F/U DIET RX AND POC IN 2-3 DAYS 2)ASSIST NEEDED
--- NOTE | 2016-06-09 12:59 | NUR ---
Significant Event: Sedated on Precedex, propofol. PERRLA. Withdraws in upper extremities. Intermittent response in lower extremities. No tracking. Sedation lightened, restless, no commands followed. Hydralazine given x2, for sbp > 170. FIO2 40%, CPAP trialed. Dr. Tavares consulted for back, awaiting recommendations. OG to LIS. Gregory catheter intact. R) PICC triple lumen, LR at 75 ml/hr, precedex, propofol and Fentanyl at 100 mcq/hr. L) wrist IV saline locked. KCl 60 meq given. Bathed this shift. Oral cares provided. Repositioned throughout shift. Family at bedside. Follow up: monitor.
--- NOTE | 2016-06-09 13:03 | NUR ---
NUTRITION CONSULT RECEIVED FOR TF RECOMMENDATIONS. RN NOTIFIED OF RECOMMENDATION (OSMOLITE 1.5 AT A GOAL RATE OF 55 ML/HR) AND WHERE TO FIND RECOMMENDATIONS IN THE WRITTEN CHART AND IN THE COMPUTER.
--- NOTE | 2016-06-09 15:46 | NUR ---
Significant Event: Patient is agitated on the ventilator when woken up for her assessment. She does follow commands after some time. Lung sounds are coarse. A Cpap trial was done today. She remains NPO until Dr. Encinas sees her. If she is not going to have an intervention done for her back tube feeding will be started. Urine output was adequate. We will continue to wean the ventilator. Propofol and Precedex continue to keep patient comfortable on the ventilator. Follow up: Continue plan of care
--- NOTE | 2016-06-10 03:57 | NUR ---
SIGNIFICANT EVENT: PT CONTINUES ON VENT, PROPOFOL UNABLE TO BE WEANED FROM 50MCG/KG/MIN, PATIENT WILL GET RESTLESS AND THRASH EXTREMITIES AT THIS DOSE, PRECEDEX CONTINUES AT 1.2 MCG/KG/MIN. DOES NOT FOLLOW COMMANDS, SPONTANEOUSLY MOVES ALL EXTREMITIES. HYDRALAZINE GIVEN X1. FOLLOW UP:
[2016-06-10 04:14] LABS: BICARBONATE 28.3 mmol/L (18.0-23.0); PCO2 38 mmHg (35-45)
[2016-06-10 04:15] LABS: PO2 87 mmHg (80-90)
[2016-06-10 04:42] LABS: ALBUMIN 2.9 gm/dL (3.5-5.0); ALK PHOS 49 IU/L (33-138); ALT 62 IU/L (12-78); BLOOD UREA NITROGEN 13 mg/dL (6-24); CALCIUM 7.9 mg/dL (8.5-10.5); CHLORIDE 107 mMol/L (96-110); CO2 26 mMol/L (22-32); CPK 85 IU/L (21-215); CREATININE 0.6 mg/dL (0.5-1.1); ESTIMATED GFR (MDRD EQUATION) > 60; SODIUM 143 mMol/L (135-145); TOTAL BILIRUBIN 0.5 mg/dL (0.0-1.5); TOTAL PROTEIN 6.5 g/dL (6.0-8.4)
[2016-06-10 04:44] LABS: ANION GAP 13.5 (10.0-19.0); AST 34 IU/L (10-40); POTASSIUM 3.5 mMol/L (3.7-5.1)
[2016-06-10 04:46] LABS: BASOPHIL % 0.3 %; HEMOGLOBIN 12.9 g/dL (10.0-15.0); IMMATURE GRANULOCYTE # 0.1 K/uL (0.0-0.3); IMMATURE GRANULOCYTE % 1.6 %; LYMPHOCYTE # 1.3 K/uL (0.8-4.0); LYMPHOCYTE % 17.7 %; MCH 33.1 pg (27.0-34.0); MCHC 33.9 gm/dL (32.0-36.5); MCV 97.4 fl (83.0-98.0); MONOCYTE # 0.6 K/uL (0.0-1.0); MONOCYTE % 7.4 %; MPV 10.4 fl (9.4-12.4); NEUTROPHIL # (ANC) 5.5 K/uL (1.8-7.8); NRBC % 0 /100WBC (0-0.00); PLATELET COUNT 230 K/uL (150-450); RDW-CV 13.4 % (11.9-14.6); WBC 7.5 K/uL (4.0-11.0)
--- NOTE | 2016-06-10 05:35 | NUR ---
PATIENT REMAINED ON HER CURRENT SETTINGS THROUGH OUT SHIFT. (AC, VT 500, RR 12, P5) BREATH SOUNDS WERE SLIGHTLY COARSE AT THE BEGINING OF THE SHIFT BUT HAVE CLEARED SO THE PATIENT IS NOW CLEAR IN THE UPPER LOBES AND CLEAR BUT DIMINISHED IN THE BASES. SUCTIONING SCANT TO MODERATE AMOUNTS OF CREAM COLORED SPUTUM. CONTINUED PATIENT'S NEBULIZED XOPENEX/ATROVENT. WILL CONTINUE TO MONITOR.
--- NOTE | 2016-06-10 12:19 | NUR ---
Stopped by to talk with Jeanine and family as I had heard she was off the vent and awake. I went to the room, reviewed her chart and talked with Dr. Vasquez, he tells me at this time, there is no family in the room and she is not appropriate to talk with at this time. He suggested I come back later once she has calmed down a bit. Will continue to follow and assist.
--- NOTE | 2016-06-10 16:51 | NUR ---
Significant Event: Patient was extubated at 0930 today. Ever since extubation she has been extremely agitated and confused. She has known dependency of pain medications. She does have chronic back pain that she will recieve prn medication for. We will try to limit the amount of narcotics she gets to continue to protect her airway. Haldol has been given x2 and does help with the agitation some. She is on room air. She is strong and able to stand strong. She ambulated in the carmona this afternoon. She is on a mechanical soft diet and taking some bites. Follow up: monitor withdrawal
[2016-06-11 04:47] LABS: ALK PHOS 52 IU/L (33-138); ALT 79 IU/L (12-78); ANION GAP 12.2 (10.0-19.0); AST 54 IU/L (10-40); BLOOD UREA NITROGEN 14 mg/dL (6-24); CALCIUM 7.9 mg/dL (8.5-10.5); CHLORIDE 109 mMol/L (96-110); CO2 25 mMol/L (22-32); CPK 290 IU/L (21-215); CREATININE 0.5 mg/dL (0.5-1.1); ESTIMATED GFR (MDRD EQUATION) > 60; MAGNESIUM 1.9 mg/dL (1.3-2.6); POTASSIUM 3.2 mMol/L (3.7-5.1); SODIUM 143 mMol/L (135-145); TOTAL PROTEIN 6.4 g/dL (6.0-8.4)
[2016-06-11 04:50] LABS: TOTAL BILIRUBIN 0.8 mg/dL (0.0-1.5)
[2016-06-11 04:58] LABS: BASOPHIL % 0.2 %; EOSINOPHIL % 0.1 %; HEMATOCRIT 37.2 % (33.0-46.0); HEMOGLOBIN 12.6 g/dL (10.0-15.0); IMMATURE GRANULOCYTE # 0.2 K/uL (0.0-0.3); IMMATURE GRANULOCYTE % 1.8 %; LYMPHOCYTE # 2.5 K/uL (0.8-4.0); LYMPHOCYTE % 23.1 %; MCH 32.8 pg (27.0-34.0); MCHC 33.9 gm/dL (32.0-36.5); MCV 96.9 fl (83.0-98.0); MONOCYTE # 0.8 K/uL (0.0-1.0); MONOCYTE % 7.8 %; MPV 10.2 fl (9.4-12.4); NEUTROPHIL # (ANC) 7.2 K/uL (1.8-7.8); NRBC % 0 /100WBC (0-0.00); PLATELET COUNT 231 K/uL (150-450); RBC 3.84 M/uL (3.50-5.50); RDW-CV 13.3 % (11.9-14.6); WBC 10.8 K/uL (4.0-11.0)
--- NOTE | 2016-06-11 05:12 | NUR ---
patient is a/o times 3 on time will be restless and agitated ,pain is a lot better after starting machine welt butter i.v dilaudid 0.5mg demand dose only,clear upper lungs sound diminished on the bsases,nc 2l/min rr=20,a6wit=22%,moist productive cough creamy secrtions,sinus heart rhythm stable hemodynamically to keep sbp<170. follow up:continue to monitor patient's hemodynamic and respiratory status closely.
--- NOTE | 2016-06-11 08:24 | NUR ---
A - NUTRITION F/U. EXTUBATED. K+ 3.2, GLU 140, BUN/WATERWAY TRAFFIC CHECKER 14/0.5, ALB 3.0. EST NEEDS: [id number] KCALS, 86-103 GM PROTEIN. DIET: MECH SOFT W/ BITES TAKEN. D - INADEQUATE NUTRIENT INTAKE R/T DECREASED APPETITE AEB INTAKE RECORD. I - GOAL: 50-75% INTAKE BY DISMISSAL. M/E - WILL OFFER ENSURE BID AND MONITOR TO ORAL INTAKE.
--- NOTE | 2016-06-11 16:04 | NUR ---
Introduced self and CM role to Jeanine's daughter out in the hallway by her room in ICU. Jeanine was using the restroom so I didn't go in to talk with her. Daughter tells me that she is a RN at [employer] and is the primary helper when it comes to helping out with her mom. It is her hope/goal that her mom will be able to get back home when she is ready for discharge. "We are waiting right now to see what Dr. Tavares says about doing surgery on her, so right now we are kind of just waiting around to see what happens there. It is our goal to get her back home eventually, but we have a long ways to go. She needs to get some help with her pain medication management and she needs to follow up with either a counselor or psych doctor. I have talked with her about going to [facility] after her stay here to get help with her depression and work on different coping skills. I realize that she has a problem, and she does too, but she needs to talk to someone about things and really get to the bottom of everything. We are checking to see if she has any benefits for inpatient psych help when it comes to her insurance, so once we know that that will help out as well. She has tried to apply for social security/Medicaid in the past but was denied so we might need some help with that as well." I let daughter know that I would bring up Brenda with [employer] card to her when I was around next and she could contact her with any Medicaid/Social Security questions to try to get the ball rolling on that. I also told her about [facility] admission criteria so she knew the process of having her mom go there. She is aware of all of that as she is an RN. She is staying her at the [facility] and plans to be around for the majority of her mom's stay here at [facility]. Per Dr. Vasquez, he is planning to move her to U when a bed becomes open on that floor. Daughter voiced concerns about making sure that her mom was really monitored when it came to what she was getting for pain meds as this has been an issue for some time. No other questions, needs or concerns. Will continue to follow and assist.
--- NOTE | 2016-06-11 19:09 | NUR ---
Significant Event: PT ALERT; DISORIENTED TO TIME. PERRLA. FOLLOWS COMMANDS. MOVES ALL EXTREMITIES. IMPAIRED SHORT TERM MEMORY; VERY REPETITIVE AND NEEDS MUCH REASSURANCE WITH CARES, ETC. TRANSFERS WITH 2-ASSIST/GAIT BELT/WALKER. NEEDS VERBAL CUEING WHEN AMBULATING. VITAL SIGNS STABLE; ORDER TO KEEP SBP <150. PRN IV LABETOLOL AND HYDRALAZINE GIVEN THIS SHIFT. LUO PATENT, DRAINING YELLOW URINE. TRIPLE LUMEN PICC LINE TO R)UPPER ARM INFUSING IV FLUIDS WITHOUT COMPLICATIONS. INTERMITTENT ANTIBIOTICS. DILAUDID CLINICIAN ONCOLOGY INFUSING AT 0.5 MG DEMAND ONLY, WITH 60 MIN. LOCKOUT. PT HAS REFUSED TO WEAR ETCO2 MONITOR; NUMEROUS EDUCATION HAS BEEN RE-INFORCED REGARDING THE IMPORTANCE OF MONITOR. PT HAS CHRONIC BACK PAIN. REGULAR DIET; POOR APPETITE. TOOK A SHOWER THIS MORNING PER WATCH TRAIN ASSEMBLER. IV HALDOL GIVEN X1 FOR RESTLESSNESS, WITH RELIEF. PT'S DAUGHTER HAS BEEN AT BEDSIDE ALL SHIFT AND VERY HELPFUL WITH PT CARES. PT TRANSFERRED TO NTU ROOM 6232 AT 1830. REPORT WAS GIVEN TO HEIDI FARIAS. Follow up: CONTINUE TO MONITOR.
[2016-06-12 06:20] LABS: ALBUMIN 3.1 gm/dL (3.5-5.0); ALK PHOS 53 IU/L (33-138); ALT 93 IU/L (12-78); ANION GAP 9.8 (10.0-19.0); AST 48 IU/L (10-40); BLOOD UREA NITROGEN 13 mg/dL (6-24); CALCIUM 8.3 mg/dL (8.5-10.5); CHLORIDE 108 mMol/L (96-110); CO2 28 mMol/L (22-32); CREATININE 0.5 mg/dL (0.5-1.1); ESTIMATED GFR (MDRD EQUATION) > 60; MAGNESIUM 1.9 mg/dL (1.3-2.6); SODIUM 143 mMol/L (135-145); TOTAL BILIRUBIN 0.8 mg/dL (0.0-1.5); TOTAL PROTEIN 6.3 g/dL (6.0-8.4)
[2016-06-12 06:22] LABS: BASOPHIL % 0.2 %; EOSINOPHIL % 0.3 %; HEMATOCRIT 37.1 % (33.0-46.0); HEMOGLOBIN 12.9 g/dL (10.0-15.0); IMMATURE GRANULOCYTE # 0.2 K/uL (0.0-0.3); IMMATURE GRANULOCYTE % 2.2 %; LYMPHOCYTE # 3.3 K/uL (0.8-4.0); LYMPHOCYTE % 30.9 %; MCH 33.4 pg (27.0-34.0); MCHC 34.8 gm/dL (32.0-36.5); MCV 96.1 fl (83.0-98.0); MONOCYTE # 1.1 K/uL (0.0-1.0); NEUTROPHIL % 56.4 %; NRBC % 0 /100WBC (0-0.00); PLATELET COUNT 256 K/uL (150-450); RBC 3.86 M/uL (3.50-5.50); RDW-CV 13.2 % (11.9-14.6); WBC 10.6 K/uL (4.0-11.0)
[2016-06-12 06:34] LABS: POTASSIUM 2.8 mMol/L (3.7-5.1)
--- NOTE | 2016-06-12 07:35 | NUR ---
Significant Event:Patient Alert to self. Very forgetful. Very repetitive, and restless this shift. Perrla. Denies n/t. C/O of constant pain to back. HTN this shift. PRN meds given. Lungs clear and dim on room air. Occasional cough. Regular diet. BM this shift. Gregory catheter intact. Heavy 2 assist. Triple lumen PICC to right upper arm running LR at 75 ml. Dilaudid AUTOMOTIVE QUALITY ENGINEER 0.5 mg demand with 60 minute lockout. Daughter has been pushing button for patient. Patient did not rest well this shift. Follow up: Pain control. Monitor blood pressure.
--- NOTE | 2016-06-12 11:46 | NUR ---
Social visit with shonanel to let her know that I had talked with Dr. Vasquez and mentioned to him that she had shared with me that a visit from a [facility] counselor would be of benefit to her mom. Dr. Vasquez did order that. I phoned over to Julita at [facility] to give her a heads up about the consult and ask that she send someone over to see Jeanine today if possible. Also provided daughter with Tatyana's business cards from the [facility] office as well. She was going to call them to talk with them about Medicaid later today. No other questions, needs or concerns.
--- NOTE | 2016-06-12 13:00 | NUR ---
Significant Event:PT SLEPT IN THIS AM PER FAMILY REQUEST. ORIENTED X3 BUT EASILY FORGETFUL. MOVE ARMS AND LEGS WELL BUT IS WEAK. UP 1-2A WALKER GB. DID AMBULATE IN THE [place]. HTN. RESTARTED COREG AND LYRICA. CLEAR AND DIMINISHED LUNG SOUNDS ON RA. REFUSES ETCO2 MONITOR WHEN AWAKE. EXPLAIN TO FAMILY RISKS. ON DILAUDID WATER FITNESS INSTRUCTOR. PICC IN NEY. GAVE POTASSIUM IV AND PO. Follow up:MONITOR LOC
[2016-06-12] MEDS ORDERED: POTASSIUM99 M1 PO (15:19)
[2016-06-12] MEDS ORDERED: HYDROCODON-ACE1 EAC4 PO (15:20)
[2016-06-12] MEDS ORDERED: HYDROCODON-ACE1 EAC6 PO (15:20)
[2016-06-13 04:47] LABS: ALBUMIN 3.3 gm/dL (3.5-5.0); ALK PHOS 58 IU/L (33-138); ALT 105 IU/L (12-78); ANION GAP 10.3 (10.0-19.0); AST 44 IU/L (10-40); BLOOD UREA NITROGEN 13 mg/dL (6-24); CALCIUM 8.4 mg/dL (8.5-10.5); CHLORIDE 107 mMol/L (96-110); CO2 30 mMol/L (22-32); CPK 72 IU/L (21-215); CREATININE 0.6 mg/dL (0.5-1.1); ESTIMATED GFR (MDRD EQUATION) > 60; MAGNESIUM 1.8 mg/dL (1.3-2.6); POTASSIUM 3.3 mMol/L (3.7-5.1); SODIUM 144 mMol/L (135-145); TOTAL BILIRUBIN 0.8 mg/dL (0.0-1.5); TOTAL PROTEIN 6.7 g/dL (6.0-8.4)
[2016-06-13 04:51] LABS: HEMATOCRIT 40.1 % (33.0-46.0); HEMOGLOBIN 13.7 g/dL (10.0-15.0); MCH 32.9 pg (27.0-34.0); MCHC 34.2 gm/dL (32.0-36.5); MCV 96.4 fl (83.0-98.0); MPV 9.7 fl (9.4-12.4); PLATELET COUNT 252 K/uL (150-450); RBC 4.16 M/uL (3.50-5.50); RDW-CV 13.1 % (11.9-14.6); WBC 13.3 K/uL (4.0-11.0)
--- NOTE | 2016-06-13 05:04 | NUR ---
Significant Event: Pt A&Ox4, but forgetful. Chronic N/T BLE. Wears upper dentures and glasses. Pt has 2 pack/day hx, hx of COPD and suspected JOSH. LS clear/dim w/non-productive cough, con't pulse ox. Pt refuses EtCO2 and has been educated on usage of EtCO2. Pt continues to refuse. Pt has hx of HTN and BP goal <180. Pt's 0300 BP 201/93, 0.1mg clonidine given. SQ heparin for VTE. PICC NEY TL, LR @75 and INFIRMARY ATTENDANT demand only. x1 assist w/gb and FWW. Regular diet and multiple BMs during the day. Gregory pulled at 0415. L elbow has old lac and coccyx reddened. Chronic back pain. Has INFIRMARY ATTENDANT 0.5mg demand/60 min lockout. Follow up:
[2016-06-13 05:14] LABS: ABSOLUTE NEUTROPHIL CT (ANC) 5.9 K/uL (1.8-7.8); BANDED NEUTROPHIL # 0.7 K/uL (0.0-0.1); BANDED NEUTROPHILS % 5 %; LYMPHOCYTE % 45 %; MONOCYTE # 0.8 K/uL (0.0-1.0); SEGMENTED NEUTROPHIL # 5.2 K/uL (1.8-7.8); SEGMENTED NEUTROPHIL % 39 %
--- NOTE | 2016-06-13 16:54 | NUR ---
Significant Event:Alert and oriented. Occasionally repeats sentences. Up to BR/Pina with walker and 2 assist. PICC to rt upper arm. Dilaudid REGIONAL TRUCK DRIVER. Voiding without difficulty. Refuses ETCO2 monitoring and pneumatic devices. Follow up:
[2016-06-14 03:53] LABS: ALBUMIN 3.2 gm/dL (3.5-5.0); ALK PHOS 58 IU/L (33-138); ALT 92 IU/L (12-78); ANION GAP 12.5 (10.0-19.0); AST 27 IU/L (10-40); BLOOD UREA NITROGEN 15 mg/dL (6-24); CALCIUM 8.5 mg/dL (8.5-10.5); CHLORIDE 106 mMol/L (96-110); CO2 27 mMol/L (22-32); CPK 49 IU/L (21-215); CREATININE 0.7 mg/dL (0.5-1.1); ESTIMATED GFR (MDRD EQUATION) > 60; MAGNESIUM 1.7 mg/dL (1.3-2.6); POTASSIUM 3.5 mMol/L (3.7-5.1); SODIUM 142 mMol/L (135-145); TOTAL BILIRUBIN 0.7 mg/dL (0.0-1.5); TOTAL PROTEIN 6.5 g/dL (6.0-8.4)
[2016-06-14 03:56] LABS: HEMATOCRIT 39.6 % (33.0-46.0); HEMOGLOBIN 13.2 g/dL (10.0-15.0); MCH 32.4 pg (27.0-34.0); MCHC 33.3 gm/dL (32.0-36.5); MCV 97.1 fl (83.0-98.0); MPV 9.8 fl (9.4-12.4); PLATELET COUNT 240 K/uL (150-450); RBC 4.08 M/uL (3.50-5.50); WBC 14.4 K/uL (4.0-11.0)
--- NOTE | 2016-06-14 04:25 | NUR ---
Significant Event: Pt A&Ox3, very much a talker. Can be forgetful at times. Chronic N/T BLE. VSS, RA. Did put pt on O2 overnight for a short time d/t sats dropping and remaining in the mid to low 80's. Does have suspected JOSH. Pt to wear EtCO2, but refuses. Up to BR/halls with 1 assist FWW and gaitbelt. TL PICC to NEY w/ LR @ 75/hr and on demand only Dilaudid 0.5mg q1h. Pt on SQ heparin and refuses SCD's. Did c/o stomach pain earlier in the night and Mylanta was ordered. Gregory was removed yesterday and pt has been voiding fine. Continue to follow POC. Follow up:
[2016-06-14 05:12] LABS: ABSOLUTE NEUTROPHIL CT (ANC) 6.6 K/uL (1.8-7.8); BANDED NEUTROPHIL # 0.1 K/uL (0.0-0.1); BANDED NEUTROPHILS % 1 %; LYMPHOCYTE # 5.5 K/uL (0.8-4.0); LYMPHOCYTE % 38 %; MONOCYTE # 1.6 K/uL (0.0-1.0); SEGMENTED NEUTROPHIL # 6.5 K/uL (1.8-7.8); SEGMENTED NEUTROPHIL % 45 %
--- NOTE | 2016-06-14 16:20 | NUR ---
ULTRA HIGH FALL RISK last fall 06/05/16 Significant Event: A/O X3, talkative/rambling conversation at times, cooperative, ambulates in carmona with PT, up in chair all shift, lots of family/visitors today, voids per toilet, 1 assist/gait belt/walker, IVF/Dilaudid TRAIN DIRECTOR per R)PICC, O2 1l/nc, lungs diminished, refuses EtCO2 monitor and SCD's. Follow up:
[2016-06-15 04:22] LABS: ALK PHOS 62 IU/L (33-138); ALT 67 IU/L (12-78); AST 22 IU/L (10-40); BLOOD UREA NITROGEN 13 mg/dL (6-24); CALCIUM 8.2 mg/dL (8.5-10.5); CHLORIDE 103 mMol/L (96-110); CO2 30 mMol/L (22-32); CPK 47 IU/L (21-215); CREATININE 0.6 mg/dL (0.5-1.1); ESTIMATED GFR (MDRD EQUATION) > 60; MAGNESIUM 1.5 mg/dL (1.3-2.6); SODIUM 140 mMol/L (135-145); TOTAL PROTEIN 6.1 g/dL (6.0-8.4)
[2016-06-15 04:23] LABS: TOTAL BILIRUBIN 0.5 mg/dL (0.0-1.5)
[2016-06-15 04:31] LABS: BASOPHIL # 0.1 K/uL (0.0-0.2); BASOPHIL % 0.6 %; EOSINOPHIL # 0.5 K/uL (0.0-0.5); EOSINOPHIL % 3.7 %; HEMOGLOBIN 12.4 g/dL (10.0-15.0); IMMATURE GRANULOCYTE # 0.2 K/uL (0.0-0.3); IMMATURE GRANULOCYTE % 1.1 %; LYMPHOCYTE # 4.2 K/uL (0.8-4.0); LYMPHOCYTE % 30.1 %; MCH 33.2 pg (27.0-34.0); MCHC 34.4 gm/dL (32.0-36.5); MCV 96.3 fl (83.0-98.0); MONOCYTE # 1.6 K/uL (0.0-1.0); MONOCYTE % 11.2 %; MPV 10.2 fl (9.4-12.4); NEUTROPHIL # (ANC) 7.5 K/uL (1.8-7.8); NEUTROPHIL % 53.3 %; NRBC % 0 /100WBC (0-0.00); PLATELET COUNT 204 K/uL (150-450); RBC 3.74 M/uL (3.50-5.50); RDW-CV 12.9 % (11.9-14.6)
--- NOTE | 2016-06-15 04:56 | NUR ---
Significant Event:PATIENT IS ALERT AND ORIENTED X3. UP X1 WITH WALKER AND GAIT BELT. REPEATS HERSELF. SLEEP STUDY PERFORMED OTHERWISE IS ON 2 L O2 PER NC. HX COPD. 2PPD SMOKER. PICC TO [facility] WITH LR AT 75. NO PRN PAIN MEDICATIONS ON QUALITY ASSURANCE COACH. PLAN IS TO DISCHARGE TO HOME TODAY. DAUGHTER HAS MULTIPLE CONCERNS REGARDING DISCHARGE THAT SHE PLANS TO VOICE PRIOR TO DISMISSAL. Follow up:
[2016-06-15] MEDS ORDERED: PRINIVIL (ZESTRI5 MG PO (11:15)
[2016-06-15] MEDS ORDERED: DOLOPHINE10 MG PO (11:16)
[2016-06-15] MEDS ORDERED: NICOTINE PATCH1 EAC1 TRANS (11:18)
[2016-06-15] MEDS ORDERED: PROTONIX40 MG PO (11:18)
[2016-06-15] MEDS ORDERED: TYLENOL325 MG PO (11:21)
[2016-06-15] MEDS ORDERED: LYRICA 150MG C150 MG PO (11:25)
[2016-06-15] MEDS ORDERED: ULTRAM50 MG PO (11:25)
[2016-06-15] MEDS ORDERED: K-TAB 10MEQ10 MEQ PO (11:28)
--- NOTE | 2016-06-15 11:30 | NUR ---
Social visit with Jeanine and her daughter who was at bedside. Daughter states that Dr. Encinas rounded this morning and they are planning on discharge to home later today. Jeanine is going to go stay with her daughter for the time being. She denies any HHC needs upon discharge. Jeanine and daughter did discuss DME with Dr. Encinas and she filled out the scripts for the DME that was asked for. I informed them where they could get that DME from here in town. I also made sure that Jeanine had the financial assistance application before she left. I went over it with her and daughter before she was dismissed, showed daughter where to mail it into once it was complete. No other questions, needs or concerns. Will continue to follow and assist. Plan home.
[2016-06-15] MEDS ORDERED: VENTOLIN HFA18 GM INH (11:31)
[2016-06-15] MEDS ORDERED: SPIRIVA HANDIHA1 KIT INH (11:32)
[2016-06-15] MEDS ORDERED: OXYGEN M-15 INH (11:37)
== END 2016-06-15 12:35 | disposition disaster alternative care site (69) | DRG 208 ==
LOC: GICU 05:41 → GNTU 06-11 18:31
PROVIDERS: Internal Medicine; Internal Medicine Pulmonary Disease; ADMIT Hospitalist
PROC: 5A1945Z Respiratory Ventilation, 24-96 Consecutive Hours (ICD-10-PCS; 2016-06-06)
PROC: 0BH17EZ Insertion of Endotracheal Airway into Trachea, Via Natural or Artificial Opening (ICD-10-PCS; 2016-06-06)
PROC: 02HV33Z Insertion of Infusion Device into Superior Vena Cava, Percutaneous Approach (ICD-10-PCS; principal; 2016-06-08)
PROC: 3E0S3NZ Introduction of Analgesics, Hypnotics, Sedatives into Epidural Space, Percutaneous Approach (ICD-10-PCS; 2016-06-11)
DX: J96.21 Acute and chronic respiratory failure with hypoxia (principal); J18.9 Pneumonia, unspecified organism; N17.9 Acute kidney failure, unspecified; J44.1 Chronic obstructive pulmonary disease with (acute) exacerbation; M62.82 Rhabdomyolysis; J98.11 Atelectasis; E87.0 Hyperosmolality and hypernatremia; E66.01 Morbid (severe) obesity due to excess calories; E87.6 Hypokalemia; F17.200 Nicotine dependence, unspecified, uncomplicated; G47.33 Obstructive sleep apnea (adult) (pediatric); I10 Essential (primary) hypertension; J96.22 Acute and chronic respiratory failure with hypercapnia; T50.901A Poisoning by unspecified drugs, medicaments and biological substances, accidental (unintentional), initial encounter; M54.5 Low back pain; M19.90 Unspecified osteoarthritis, unspecified site; I25.10 Atherosclerotic heart disease of native coronary artery without angina pectoris; G89.29 Other chronic pain; F17.210 Nicotine dependence, cigarettes, uncomplicated; Z78.1 Physical restraint status; Z68.30 Body mass index [BMI] 30.0-30.9, adult
CPT/HCPCS: A9270; C1751; C9113; J0360; J0702; J1170; J1630; J1644; J1650; J1956; J2250; J2270; J2704; J2920; J2930; J3010; J3480; J7030; J7040; J7050; J7060; J7120; J7612; Q9967

== ENCOUNTER → 2016-08-03 | Outpatient (CLI) | payer OTHER ==
[~2016-08-03] MED LIST: ADVIL200 MG PO; CARDURA8 MG PO; DOLOPHINE10 MG PO; ECOTRIN325 MG PO; FLEXERIL10 MG PO; HYDROCODON-ACE1 EAC4 PO; HYDROCODON-ACE1 EAC6 PO; K-TAB 10MEQ10 MEQ PO; LASIX20 MG PO; LOPRESSOR50 MG PO; LYRICA 150MG C150 MG PO; LYRICA 75MG CAP75 MG PO; NICOTINE PATCH1 EAC1 TRANS; NORVASC10 MG PO; OGEN0.625 MG PO; OXYGEN M-15 INH; POTASSIUM99 M1 PO; PRINIVIL (ZESTRI5 MG PO; PROTONIX40 MG PO; PROVERA2.5 MG PO; RELACORE PO; SPIRIVA HANDIHA1 KIT INH; THERAGRAN-M1 TAB PO; TYLENOL325 MG PO; ULTRAM50 MG PO; VENTOLIN HFA18 GM INH
== END | disposition disaster alternative care site (69) ==
LOC: GRAD 09:28
DX: M54.2 Cervicalgia (principal); M79.602 Pain in left arm; M47.9 Spondylosis, unspecified